=== PATIENT | male | born 1995 | race African-American/Black ===

== ENCOUNTER 2022-12-13 09:59 | Emergency (ER) | payer OTHER, SELFPAY ==
[2022-12-13] VITALS (7 sets, daily range): BP systolic 127–131; BP diastolic 79–88; PULSE 60–78; RESP 16; TEMP 36.3; O2SAT 97–100; BMI 27.7
--- NOTE | 2022-12-13 10:51 | ED.DIZZY ---
HPI - Dizziness General Chief Complaint: Dizziness Stated Complaint: migrane Time Seen by Provider: 12/13/22 10:39 Source: patient and EMS Mode of arrival: EMS Limitations: no limitations History of Present Illness HPI Narrative: This is a 27-year-old male who presents with complaint of migraine, vertigo like symptoms. Patient states he is had migraines on and off for several years. His states the pattern is fairly typical but he is having vertigo this morning. He states he often has mild episodes of vertigo in the morning 1st thing he awakens but this is lasted a little bit longer and been a little bit more persistent. Patient states last night he did fall asleep he hit his from a seated position on his couch he thinks he hit it hard enough to potentially give him a concussion and kick off his migraine. Patient denies any fevers or chills. No chest pain or shortness of breath. He is had some nausea vomiting this morning but states it is from the room spinning. Patient denies any loss of bowel or bladder control. He is had some mild diarrhea. He denies any cough cold or congestive symptoms. Patient denies any syncope. He denies any trauma or other injuries besides reported above. Denies any abdominal back or flank pain. No dysuria urgency or frequency. No incontinence. Patient denies any weakness, loss of sensation or sensation changes. Patient describes having a blood dyscrasia, he states protein S or C deficiencty, then sickle cell trait and then states G6 PD and states they are all the same diagnosis, unclear what his primary diagnosis is or if he has multiples. He is very unclear regarding the diagnosis but states he was diagnosed while in [employer] [place]. He states he was told he should not take blood thinners. Patient states no daily medications. Denies surgeries. No known drug allergies other than adhesive. Uses tobacco daily, occasional alcohol, denies illicit. Patient is in the [place]. Related Data Previous Rx's Medication Instructions Recorded meclizine 25 mg chewable tablet 25 mg PO QID PRN dizziness #20 tabs 12/13/22 Allergies Allergy/AdvReac Type Severity Reaction Status Date / Time adhesive AdvReac Redness of Verified 12/13/22 10:19 Skin Review of Systems Review of Systems ROS Unobtainable: All systems reviewed & are unremarkable except as noted in HPI and below Patient History Social History Smoking Status: Current every day smoker Smoking Status: Current every day smoker tobacco type: vaping alcohol intake frequency: 0-2 drinks per day Substance Use Type: does not use Exam Narrative Exam Narrative: GEN: well nourished, well appearing male, alert and oriented x 3, patient appears to be in mild distress. HEENT: Atraumatic, pupils are equal round reactive to light, extraocular movements are intact, nares are clear, TMs are clear with no fluid, there is no conjunctival pallor. Throat is clear without any exudates, erythema, tonsillar enlargement or uvular deviation, no cervical vertebral tenderness. Patient was clinically cleared with cervical collar in the room. HEART: Regular rate and rhythm without murmur, clicks, rubs. No carotid bruits, pulses are equal in upper and lower extremities LUNGS:Lungs clear to auscultation, no wheezes, rales, crackles, chest moves symmetrically ABD:bowel sounds normal, soft, non-tender, no guarding, rebound, rigidity, no masses noted, no hepatosplenomegaly :No CVA tenderness MSCL: Non-tender, no muscle atrophy, muscles strength 5/5 upper and lower extremities, full range of motion, normal gait NEURO:CN 2-12 intact, sensation normal. SKIN: No rash, erythema or other skin changes noted Initial Vital Signs Initial Vital Signs: Vital Signs Pulse Rate 73 12/13/22 10:07 Pulse Oximetry 98 12/13/22 10:07 Course Orders Ordered: ED Orders 12/13/22 11:12 CT head/brain wo con Stat 12/13/22 11:30 COVID19 -Nasal RAPID Stat Discontinued Medications Acetaminophen (Acetaminophen 325 Mg Tablet) 975 mg PO NOW ONE Stop: 12/13/22 11:13 Last Admin: 12/13/22 11:30 Dose: 975 mg Documented By: TAMAR Meclizine HCl (Meclizine Hcl 12.5 Mg Tablet) 50 mg PO NOW ONE Stop: 12/13/22 10:53 Last Admin: 12/13/22 11:30 Dose: 50 mg Documented By: TAMAR Ondansetron HCl (Ondansetron 4 Mg Odt) 4 mg SL NOW ONE Stop: 12/13/22 10:53 Last Admin: 12/13/22 11:31 Dose: 4 mg Documented By: TAMAR Vital Signs Vital signs: Vital Signs - 8 hr 12/13/22 12:00 Pulse Rate 61 Pulse Oximetry 99 MDM - Dizziness Lab Data Labs: Lab Results 12/13/22 Range/Units 11:30 SARS-CoV-2 (PCR) Negative (Negative) Imaging Data CT scan - head: Radiologist's Impression: [address] [address] [address] Scan Report Signed Patient: Jake Guerra MR#: [id number] : 1995 Acct:[id number] Age/Sex: 27 / M Date of Service: 12/13/22 Loc: ED Accession Number: [id number] ?? Procedure: CT head/brain wo con Ordering Provider: Mallory Daugherty D.O. PROCEDURE:? CT HEAD/BRAIN WO CON ? INDICATIONS:? hx migraines, vertigo, intermittent ? TECHNIQUE:? Noncontrast 4.5 mm thick angled axial sections acquired from the foramen magnum to the vertex, with coronal and sagittal reformats.? For radiation dose reduction, the following was used:? automated exposure control, adjustment of mA and/or kV according to patient size.? ? COMPARISON:? None. ? FINDINGS:? Image quality:? Excellent.? ? CSF spaces:? Basal cisterns are patent.? No extra-axial fluid collections.? Ventricles are normal in size and shape.? ? Brain:? No midline shift.? No intracranial masses or hemorrhage.? Alvarado-white matter interface is normal.? ? Skull and face:? Calvarium and visualized facial bones are intact, without suspicious lesions.? ? Sinuses:? Visualized sinuses and mastoids are clear.? ? IMPRESSION:? ? 1. No acute intracranial abnormalities. ? ? ? Dictated by: Dilia Gonzalez M.D. on 12/13/2022 at 11:37 ? ? Approved by: Dilia Gonzalez M.D. on 12/13/2022 at 11:37?? [facility] Narrative Medical decision making narrative: This is a 27-year-old male who presents with complaint of migraine, vertigo she states he is had both in the past but not typically at the same time. He notes no recent trauma or injuries. No other acute neurologic changes. He states he did hit his head last night he was seated on the couch had fallen asleep jerked his head backwards and hit the wall. Patient states he might hit hard enough to cause a concussion. He notes he does sometimes have vertigo but for a few seconds in the morning. He states he also gets migraines intermittently. He is not had any other significant changes. He states he walked without issue this morning. He denies any syncope or loss of consciousness. He denies any other acute neurologic changes. Patient had 2 attempts at IVs refused attempted in the hands. He reports some sort of blood dyscrasia but unclear as he lists several but states they are all the same thing and was diagnosed in 2003 and told he should take blood thinners. Patient was given Zofran, meclizine and Tylenol here in the department. He is laughing and joking with his chief from the [facility] when I evaluate him in the room and states his headache is improving prior to receiving any medication. C-spine was clinically cleared and C-collar was removed. EMS states they placed as patient was complaining of some neck pain when they touched his neck and were unclear on his story regarding if there was trauma or not. Patient's vitals, neurologic exam are overall reassuring. Head CT shows no acute change. Had discussed with patient he states he is had reported history of migraines longstanding but never had any imaging. This along with vertigo symptoms and possible hitting his head hard enough for concussion according to the patient prompted imaging. Patient did state he had some vomiting this morning. He is feeling much improved at this time received Tylenol, Zofran and meclizine in the department after evaluation. Patient had had a little diarrhea recently so COVID swab was included as well which is negative. Patient ambulating without any issue in department, feels much improved. Patient and I discussed should follow up with neuro or ENT if he has never had an evaluation. Discharge Plan Departure Patient Disposition: Home Clinical Impression: Vertigo Instructions: DI for Vertigo Activity Restrictions/Additional Instructions: Please follow-up for recheck. Your imaging today did not show any acute change. You can take meclizine 1-2 tablets every 6 hours as needed for vertigo symptoms or dizziness. Please return for severe headaches, new changes typical headache pattern, persistent vertigo, persistent vomiting, new numbness, tingling or weakness, passing out, loss of bowel or bladder control or other new or concerning changes. Prescriptions: New meclizine 25 mg tablet,chewable 25 mg PO QID PRN (Reason: dizziness) Qty: 20 0RF Stand Alone Forms: Patient Portal/API
--- NOTE | 2022-12-13 11:12 | DI.CT.S_ITS ---
PROCEDURE: CT HEAD/BRAIN WO CON INDICATIONS: hx migraines, vertigo, intermittent TECHNIQUE: Noncontrast 4.5 mm thick angled axial sections acquired from the foramen magnum to the vertex, with coronal and sagittal reformats. For radiation dose reduction, the following was used: automated exposure control, adjustment of mA and/or kV according to patient size. COMPARISON: None. FINDINGS: Image quality: Excellent. CSF spaces: Basal cisterns are patent. No extra-axial fluid collections. Ventricles are normal in size and shape. Brain: No midline shift. No intracranial masses or hemorrhage. Alvarado-white matter interface is normal. Skull and face: Calvarium and visualized facial bones are intact, without suspicious lesions. Sinuses: Visualized sinuses and mastoids are clear. IMPRESSION: 1. No acute intracranial abnormalities. Dictated by: Dilia Gonzalez M.D. on 12/13/2022 at 11:37 Approved by: Dilia Gonzalez M.D. on 12/13/2022 at 11:37
[2022-12-13] MEDS: ACETAMINOPHEN 325 MG TABLET 975 MG PO (11:30)
[2022-12-13] MEDS: MECLIZINE HCL 12.5 MG TABLET 50 MG PO (11:30)
[2022-12-13] MEDS: ONDANSETRON 4 MG ODT SL (11:31)
[2022-12-13 11:48] LABS: COVID19 -Nasal RAPID Negative (Negative)
== END 2022-12-13 12:19 | disposition home or self-care (01) ==
PROVIDERS: Emergency Provider Emergency Medicine
DX: R42 Dizziness and giddiness (principal); Z20.822 Contact with and (suspected) exposure to COVID-19
CPT/HCPCS: 70450; 87635; 99284; C9803

== ENCOUNTER → 2025-01-03 11:47 | Outpatient (CLI) | payer OTHER, SELFPAY ==
[2025-01-03 12:34] LABS: Add Manual Diff / Slide Review NO; Hematocrit 43.2 % (41-53); Hemoglobin 14.8 g/dL (13.5-17.5); Lymphocytes Absolute Auto 2100 /uL (1100-4500); Mean Corpuscular HGB Conc 34.1 % (30-36); Mean Corpuscular Hemoglobin 30.8 PG (26-34); Mean Corpuscular Volume 90.1 fL (80-100); Platelet Count 220 X10^3/uL (150-400)
== END ==
PROVIDERS: Referring Provider Chiropractor; Visit Provider Chiropractor
DX: D50.9 Iron deficiency anemia, unspecified (principal)
CPT/HCPCS: 36415; 85025